=== PATIENT | male | born 1985 | race Caucasian/White ===

== ENCOUNTER 2024-10-01 05:15 | Inpatient (IN) | payer OTHER ==
[~2024-10-01] VITALS: Ht 165.1 cm; Wt 61.3 kg
--- NOTE | 2024-10-01 06:33 | ED.PDOC ---
General HPI Comments 39 year old male presents to the ED with chief complaint of flank pain. Patient reports that he has been experiencing intermittent left sided flank pain for the past 7 months, however, it got worse last night along with experiencing associated dysuria. 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 Patient states he has had recent unexplained weight loss of about 15 lbs and a poor appetite. Patient admits to occasional ETOH and Cocaine use. Patient denies any falls, injury, N/V/D, abdominal pain, headache, dizziness, hematuria, or fever. Chief Complaint: Flank Pain Time Seen by MD: 06:24 Reviewed notes: Nurses Notes, Medications, Allergies Information Source: Patient Mode of Arrival: Ambulatory Severity: Moderate Timing: Months Duration: Intermittent Prehospital treatment: None Onset: Spontaneous Symptoms: Dysuria History of: None Location: (L)Flank Penile discharge: None Modifying factors: None associated signs and symptoms: Flank Pain, Dysuria Past Medical History PAST MEDICAL HISTORY: Denies Surgical History: Denies all surgeries Family History Family History: Reviewed,noncontributory to illness Social History Smoker: Cigarettes Alcohol: Occasionally Drugs: Cocaine Lives In: Home Constitutional: denies: chills, diaphoresis, fatigue, fever, malaise, sweats, weakness, others EENTM: denies: blurred vision, double vision, ear bleeding, ear discharge, ear drainage, ear pain, ear ringing, eye pain, eye redness, hearing loss, mouth pain, mouth swelling, nasal discharge, nose bleeding, nose congestion, nose pain, photophobia, tearing, throat pain, throat swelling, voice changes, others Respiratory: denies: cough, hemoptysis, orthopnea, SOB at rest, shortness of breath, SOB with excertion, stridor, wheezing, others Cardiovascular: denies: chest pain, dizzy spells, diaphoresis, Dyspnea on exertion, edema, irregular heart beat, left arm pain, lightheadedness, palpitations, PND, syncope, others Gastrointestinal: reports: poor appetite; denies: abdomen distended, abdominal pain, blood streaked bowels, constipated, diarrhea, dysphagia, difficulty swallowing, hematemesis, melena, nausea, poor fluid intake, rectal bleeding, rectal pain, vomiting, others Genitourinary: reports: dysuria, flank pain; denies: burning, frequency, hematuria, incontinence, penile discharge, penile sore, pain, testicle pain, testicle swelling, urgency, others Neurological: denies: dizziness, fainting, headache, left sided numbness, left sided weakness, numbness, paresthesia, pre-existing deficit, right sided num bness, right sided weakness, seizure, speech problems, tingling, tremors, weakness, others Musculoskeletal: denies: back pain, gout, joint pain, joint swelling, muscle pain, muscle stiffness, neck pain, others Integumetry: denies: bruises, change in color, change in hair/nails, dryness, laceration, lesions, lumps, rash, wounds, others Allergic/Immunocompromised: denies: Difficulty Healing, Frequent Infections, Hives, Itching, others Hematologic/Lymphatic: denies: anemia, blood clots, easy bleeding, easy bruising, swollen glands, others Endocrine: reports: unexplained weight loss; denies: excessive hunger, excessive sweating, excessive thirst, excessive urination, flushing, intolerance to cold, intolerance to heat, unexplained weight gain, others Psychiatric: denies: anxiety, bipolar disorder, depression, hopeless, panic disorder, schizophrenia, sleepless, suicidal, others All Other Systems: Reviewed and Negative Physical Exam General Appearance: Moderate Distress, Normal HEENT: Normal ENT Inspection, PERRL/EOMI Neck: Full Range of Motion, Non-Tender, Normal, Normal Inspection Respiratory: Chest Non-Tender, Lungs Clear, No Accessory Muscle Use, No Respiratory Distress, Normal Breath Sounds Cardiovascular: No Edema, No JVD, No Murmur, No Gallop, Normal Peripheral Pulses, Regular Rate/Rhythm Breast Exam: Deferred Gastrointestinal: No Organomegaly, Non Tender, No Pulsatile Mass, Normal Bowel Sounds, Soft Genitalia: Deferred Pelvic: Deferred Rectal: Deferred Extremities: No calf tenderness, Normal capillary refill, Normal inspection, Normal range of motion, Non-tender, No pedal edema Musculoskeletal : Apperance: Normal Neurologic: Alert, track worker II-XII nml as Tested, No Motor Deficits, Normal Affect, Normal Mood, No Sensory Deficits Cerebellar Function: Normal Reflexes: Normal Skin: Dry, Normal Color, Warm Peripheral Pulses: 3+ Radial (R), 3+ Radial (L) Lymphatic: No Adenopathy Was a procedure done? Was a procedure done?: No Differential Diagnosis Kidney stone (Female): Musculoskeletal pain, Urinary obstruction, Urolithiasis Kidney stone (Male): Pyelonephritis, Urolithiasis, Urinary tract infection X-Ray, Labs, Meds, VS Vital Signs Date Time Temp Pulse Resp B/P (MAP) Pulse Ox O2 Delivery O2 Flow Rate FiO2 10/01/24 08:51 100 18 135/89 10/01/24 08:44 97.9 100 16 135/89 (104) 95 97.9 10/01/24 08:44 100 18 95 Room Air* 0 21 10/01/24 05:55 98.4 95 16 132/106 (115) 96 Lab Test 10/01/24 06:41 10/01/24 05:50 Range/Units White Blood Count 5.7 4.4-10.8 10^3/uL Red Blood Count 5.51 4.5-5.90 10^6/uL Hemoglobin 16.7 13.5-17.5 g/dL Hematocrit 49.0 41.0-53.0 % Mean Corpuscular Volume 89.0 80.0-100.0 fL Mean Corpuscular Hemoglobin 30.4 28.0-32.0 pg Mean Corpuscular Hemoglobin Concent 34.2 32.0-36.0 g/dL Red Cell Distribution Width 15.9 H 11.8-14.3 % Platelet Count 239 140-450 10^3/uL Mean Platelet Volume 8.1 6.9-10.8 fL Neutrophils (%) (Auto) 55.0 37.0-80.0 % Lymphocytes (%) (Auto) 29.3 10.0-50.0 % Monocytes (%) (Auto) 6.4 0.0-12.0 % Eosinophils (%) (Auto) 8.8 H 0.0-7.0 % Basophils (%) (Auto) 0.5 0.0-2.0 % Neutrophils # (Auto) 3.1 1.6-8.6 10 ^3/uL Lymphocytes # (Auto) 1.7 0.4-5.4 10 ^3/uL Monocytes # (Auto) 0.4 0-1.3 10 ^3/uL Eosinophils # (Auto) 0.5 0-0.8 10 ^3/uL Basophils # (Auto) 0 0-0.2 10 ^3/uL Nucleated Red Blood Cells 0.3 % Sodium Level 136 136-145 mmol/L Potassium Level 3.9 3.5-5.1 mmol/L Chloride Level 100 98-107 mmol/L Carbon Dioxide Level 29 20-31 mmol/L Anion Gap 7 5-15 Blood Urea Nitrogen 10 9-23 mg/dL Creatinine 1.09 0.700-1.30 mg/dL Glomerular Filtration Rate Calc 87 >90 mL/min BUN/Creatinine Ratio 9.2 L 10.0-20.0 Serum Glucose 76 74-106 mg/dL Calcium Level 9.7 8.7-10.4 mg/dL Lipase 34 12-53 U/L Urine Color Yellow Yellow Urine Clarity Clear Clear Urine pH 6.0 5.0-9.0 Urine Specific [place] 1.029 1.001-1.035 Urine Protein Trace H Negative Urine Ketones 1+ H Negative Urine Blood Negative Negative /uL Urine Nitrite Negative Negative Urine Bilirubin Negative Negative Urine Urobilinogen Normal Negative mg/dL Urine Leukocyte Esterase Negative Negative /uL Urine RBC 2 0 - 3 /hpf Urine Microscopic WBC 1 0-3 /HPF Urine Squamous Epithelial Cells None seen <5 /hpf Urine Bacteria None seen None Seen /hpf Urine Mucus Few None Seen Urine Glucose Normal Normal mg/dL Urine Opiates Screen Neg NEGATIVE Urine Fentanyl Screen Neg NEGATIVE Urine Barbiturates Screen Neg NEGATIVE Urine Phencyclidine Screen Neg NEGATIVE Urine Amphetamines Screen Neg NEGATIVE Urine Benzodiazepines Screen Neg NEGATIVE Urine Cocaine Screen Pos NEGATIVE Urine Cannabinoids Screen Neg NEGATIVE Current Medications Medications (Trade) Dose Ordered Sig/[facility] Route Start Time Stop Time Status Last Admin Sodium Chloride 1,000 ml @ 1,000 mls/hr Q1H ONCE IVB 10/01/24 06:45 10/01/24 07:44 DC 10/01/24 08:43 Patient alert. Complaining of flank pain. Vitals stable. Answering all questions. Abdomen is soft nontender. States that he has been losing weight. Establish intravenous access. Was given fluids. Was given morphine. Was given Zofran. Counseled patient on effects of smoking cigarettes for 15 minutes. Reviewed his history. Explained to the patient. CT Abd/Pel: FINDINGS: Motion artifact beam hardening artifact limit evaluation. Lung bases: Lung bases are clear. Liver: Grossly unremarkable in its noncontrast enhanced appearance. No abnormal density or focal lesion identified. Biliary: Gallbladder is partially contracted. No calcified gallstones visualized. Spleen: Unremarkable. Pancreas: Grossly unremarkable in its noncontrast enhanced appearance. Adrenal glands: Unremarkable. No mass. Kidneys: No hydronephrosis. Bilateral renal cysts, left greater than right, with the largest measuring up to 5.3 cm.. Multiple small left renal calculi measuring up to 8 mm in greatest dimension. No obstructing calculi. Aorta/Vascular: Mild atherosclerotic calcification. No abdominal aortic aneurysm. Retroperitoneum: No mass or lymphadenopathy. Bowel/mesentery: Nonspecific nondilated fluid-filled small bowel loops. No small bowel obstruction. Appendix is visualized and appears unremarkable. Pelvic organs: Grossly unremarkable. Bladder: Mild circumferential thickening of the bladder wall. Abdominal wall: No mass or hernia. Bones: No acute fracture or suspicious intraosseous lesion. IMPRESSION: 1. Multiple small nonobstructing left renal calculi. No hydronephrosis or obstructing calculi. 2. Bilateral renal cysts, greater on the left, with the largest measuring up to 5.3 cm on the left. 3. Nonspecific nondilated fluid-filled small bowel loops, may be seen with ileus or enteritis in the appropriate clinical setting. No small bowel obstruction. 4. Circumferential thickening of the bladder wall is nonspecific. Correlate clinically to exclude cystitis. 5. Additional findings as described above Images Reviewed?: Images reviewed and evaluated by me Time of 1ST Reevaluation: 07:24 Reevaluation 1ST: Unchanged Patient Education/Counseling: Diagnosis, Treatment Family Education/Counseling: No Family Present Additional Information I reviewed the following notes from patient's past medical encounters: None The following tests were ordered, and results were reviewed by me: CT Abd/Pel, CBC, BMP, Lipase, UA Additional Information was gathered from interviewing the following independent historians: None I reviewed and agreed with the following test results read by other providers: CT Abd/Pel I discussed treatment and results with medical personnel. Departure 1 Departure Time of Disposition: 06:38 Impression: Primary Impression: Acute abdominal pain Disposition: ADMITTED INPATIENT Admit to: Med Surg Condition: Guarded Critical Care Note Critical Care Time?: No Stability Stability form required: No Heart Score Heart Score: Heart Score Response (Comments) Value History N/A 0 EKG N/A 0 Age N/A 0 Risk Factors N/A 0 Troponin N/A 0 Total 0 I personally scribed for MONIKA SHARMA MD ([email or web address]) on 10/01/24 at 06:33. Electronically submitted by Deandre Jeong ([email or web address]). I personally scribed for MONIKA SHARMA MD ([email or web address]) on 10/01/24 at 06:34. Electronically submitted by Deandre Jeong ([email or web address]). I personally scribed for MONIKA SHARMA MD ([email or web address]) on 10/01/24 at 07:13. Electronically submitted by Deandre Jeong ([email or web address]). I personally scribed for MONIKA SHARMA MD ([email or web address]) on 10/01/24 at 10:36. Electronically submitted by Deandre Jeong ([email or web address]). MONIKA SHARMA MD Oct 01, 2024 06:33
[2024-10-01 07:29] LABS: Basophils # (auto) 0 10 ^3/uL (0-0.2); Basophils % (auto) 0.5 % (0.0-2.0); Eosinophils # (auto) 0.5 10 ^3/uL (0-0.8); Eosinophils % (auto) 8.8 % (0.0-7.0); Hemoglobin 16.7 g/dL (13.5-17.5); Lymphocytes # (auto) 1.7 10 ^3/uL (0.4-5.4); Lymphocytes % (auto) 29.3 % (10.0-50.0); Mean Corpuscular Hemoglobin 30.4 pg (28.0-32.0); Mean Corpuscular Hgb Conc. 34.2 g/dL (32.0-36.0); Monocytes # (auto) 0.4 10 ^3/uL (0-1.3); Monocytes % (auto) 6.4 % (0.0-12.0); Neutrophils # (auto) 3.1 10 ^3/uL (1.6-8.6); Nucleated Red Blood Cells % 0.3 %; Platelet Count (auto) 239 10^3/uL (140-450); Red Blood Cells 5.51 10^6/uL (4.5-5.90); Red Cell Distribution Width 15.9 % (11.8-14.3); White Blood Cell 5.7 10^3/uL (4.4-10.8)
[2024-10-01 07:33] LABS: Chloride 100 mmol/L (98-107); Potassium 3.9 mmol/L (3.5-5.1); Sodium 136 mmol/L (136-145)
[2024-10-01 07:34] LABS: Anion Gap 7 (5-15); Carbon Dioxide 29 mmol/L (20-31)
[2024-10-01 07:35] LABS: Calcium 9.7 mg/dL (8.7-10.4)
[2024-10-01 07:40] LABS: BUN/Creatinine Ratio 9.2 (10.0-20.0); Blood Urea Nitrogen 10 mg/dL (9-23); Glucose 76 mg/dL (74-106); Lipase 34 U/L (12-53)
[2024-10-01] MEDS: SODIUM CHLORIDE 0.9% 1,000 ML IVB ONE (08:43)
[2024-10-01 08:44] VITALS: PULSE 100; RESP 18; O2SAT 95
[2024-10-01] MEDS: MORPHINE SULFATE 4 MG/ML SYR/VIAL IV ONE (08:51)
[2024-10-01] MEDS: ONDANSETRON HCL 4 MG/2 ML VIAL IV ONE (08:54)
[2024-10-01 09:43] LABS: Urine Bacteria None Seen /hpf (None Seen)
[2024-10-01 09:56] LABS: Urine Blood Negative /uL (Negative); Urine Clarity Clear (Clear); Urine Color Yellow (Yellow); Urine Mucus FEW (None Seen); Urine Protein, UAD TRACE (Negative); Urine Specific Gravity 1.029 (1.001-1.035); Urine Squamous Epithelial Cell None Seen /hpf (<5); Urine Urobilinogen Normal (Negative); Urine WBC 1 /HPF (0-3)
--- NOTE | 2024-10-01 10:14 | DVH ---
CLINICAL INFORMATION: 39 years old, Male; flank pain. TECHNIQUE: Axial CT images of the abdomen and pelvis were obtained without IV contrast. Coronal and sagittal reformatted images were obtained, reviewed, and stored. Evaluation of the parenchymal organs is limited without IV contrast. Evaluation of the bowel and mesentery is limited without oral contra st. All CT scans at this medical facility are performed using dose modulation techniques as appropria te to a performed exam including the following: Automated exposure control was utilized; adjustment o f the MA and/or KV according to patient size; and use of iterative reconstruction technique. CTDIvol = 5.55 mGy DLP = 268.73 mGy-cm COMPARISON: None FINDINGS: Motion artifact beam hardening artifact limit evaluation. Lung bases: Lung bases are clear. Liver: Grossly unremarkable in its noncontrast enhanced appearance. No abnormal density or focal les ion identified. Biliary: Gallbladder is partially contracted. No calcified gallstones visualized. Spleen: Unremarkable. Pancreas: Grossly unremarkable in its noncontrast enhanced appearance. Adrenal glands: Unremarkable. No mass. Kidneys: No hydronephrosis. Bilateral renal cysts, left greater than right, with the largest measurin g up to 5.3 cm.. Multiple small left renal calculi measuring up to 8 mm in greatest dimension. No obs tructing calculi. Aorta/Vascular: Mild atherosclerotic calcification. No abdominal aortic aneurysm. Retroperitoneum: No mass or lymphadenopathy. Bowel/mesentery: Nonspecific nondilated fluid-filled small bowel loops. No small bowel obstruction. A ppendix is visualized and appears unremarkable. Pelvic organs: Grossly unremarkable. Bladder: Mild circumferential thickening of the bladder wall. Abdominal wall: No mass or hernia. Bones: No acute fracture or suspicious intraosseous lesion. IMPRESSION: 1. Multiple small nonobstructing left renal calculi. No hydronephrosis or obstructing calculi. 2. Bilateral renal cysts, greater on the left, with the largest measuring up to 5.3 cm on the left. 3. Nonspecific nondilated fluid-filled small bowel loops, may be seen with ileus or enteritis in the appropriate clinical setting. No small bowel obstruction. 4. Circumferential thickening of the bladder wall is nonspecific. Correlate clinically to exclude cy stitis. 5. Additional findings as described above
[2024-10-01 10:16] LABS: Amphetamine Screen, Urine Neg (NEGATIVE); Barbiturate Scree,Urine Neg (NEGATIVE); Benzodiazephine Screen, Urine Neg (NEGATIVE); Cannabinoid Screen, Urine Neg (NEGATIVE); Cocaine Screen, Urine Pos (NEGATIVE); Opiate Scree,Urine Neg (NEGATIVE); Phencyclidine Screen, Urine Neg (NEGATIVE)
[2024-10-01] MEDS ORDERED: MORPHINE SULFATE INJ 2 MG/ml SYRG IV PRN (10:45)
[2024-10-01] MEDS ORDERED: NITROGLYCERIN 0.4 MG SL TAB SL PRN (10:45)
[2024-10-01] MEDS ORDERED: ONDANSETRON HCL 4 MG/2 ML VIAL IV PRN (10:45)
[2024-10-01] MEDS ORDERED: ACETAMINOPHEN 325 MG TAB PO PRN (10:45)
--- NOTE | 2024-10-01 10:47 | DVHHP2 ---
History of Present Illness Reason for Visit: Chest pain and left flank pain History of Present Illness Jimmy Oconnell is a 39-year-old male with no past medical history who presents to the ED with midsternal chest pain, left flank pain, and dysuria x1 day. Patient reports that the left flank pain is 2/10 intermittent and throbbing. He also reports that the midsternal chest pain is 1/10 throbbing and intermittent better when lying down. Patient also reports of upper quadrant pain, worse when coughing. He reports that he lost 50 lb over the last several months and has had a poor appetite. Patient states that there are no triggering factors. Patient denies any shortness of breath, fever, chills, recent sick contacts, hematuria, nausea, vomiting, and diarrhea. 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 Past Surgical History: None Family History: Hypertension, Other (Dad with hypertension and mom with dementia) Smoke: <1 pack per day (Vapes) ALCOHOL: heavy Drugs: Cocaine Lives: with Family Domestic Violence: Neg Review of Systems Constitutional: No: Fever, Chills, Sweats, Weakness, Malaise, Other Eyes: No: Pain, Vision change, Conjunctivae inflammation, Eyelid inflammation, Other, Redness ENT: No: Ear pain, Ear discharge, Nose pain, Nose discharge, Nose congestion, Mouth pain, Mouth swelling, Throat pain, Throat swelling, Other Respiratory: No: Cough, Dry, Shortness of breath, SOB with excertion, Wheezing, Hemoptysis, Pleuritic Pain, Sputum, Wheezing, Other Cardiovascular: Chest Pain; No: Palpitations, Orthopnea, Paroxysmal Noc. Dyspnea, Edema, Lt Headedness, Other Gastrointestinal: Abdominal Pain; No: Nausea, Vomiting, Diarrhea, Constipation, Melena, Hematochezia, Other Genitourinary: Dysuria; No Frequency, No Incontinence, No Hematuria, No Retention, No Other Musculoskeletal: No: other, neck pain, shoulder pain, arm pain, back pain, hand pain, leg pain, foot pain Skin: No: Rash, Lesions, Jaundice, Bruising, Other Neurological: No: Weakness, Numbness, Incoordination, Change in speech, Confusion, Seizures, Other Other Left flank pain Allergies: Coded Allergies: NO KNOWN ALLERGIES (Unverified , 10/01/24) Exam Vital Signs Vital Signs Date Time Temp Pulse Resp B/P (MAP) Pulse Ox O2 Delivery O2 Flow Rate FiO2 10/01/24 08:51 100 18 135/89 10/01/24 08:44 97.9 95 97.9 10/01/24 08:44 Room Air* 0 21 General Appearance: Alert, Oriented X3, Cooperative, No acute distress HEENT: Atraumatic, PERRLA, EOMI, Mucous membr. moist/pink Respiratory: Clear to auscultation, Normal air movement Cardiovascular: Regular rate, Normal S1, Normal S2, No murmurs Abdominal: Normal bowel sounds, Soft, No tenderness, No hepatospenomegaly, No masses Extremities: No clubbing, No cyanosis, No edema, Normal pulses, No tenderness/swelling Skin: No rashes, No breakdown, No significant lesion Neuro: Normal gait, Normal speech, Strength at 5/5 X4 ext, Normal tone, S ensation intact Psych/Mental Status: Mental status NL, Mood NL Labs/Xrays Labs Test 10/01/24 06:41 10/01/24 05:50 Range/Units White Blood Count 5.7 4.4-10.8 10^3/uL Red Blood Count 5.51 4.5-5.90 10^6/uL Hemoglobin 16.7 13.5-17.5 g/dL Hematocrit 49.0 41.0-53.0 % Mean Corpuscular Volume 89.0 80.0-100.0 fL Mean Corpuscular Hemoglobin 30.4 28.0-32.0 pg Mean Corpuscular Hemoglobin Concent 34.2 32.0-36.0 g/dL Red Cell Distribution Width 15.9 H 11.8-14.3 % Platelet Count 239 140-450 10^3/uL Mean Platelet Volume 8.1 6.9-10.8 fL Neutrophils (%) (Auto) 55.0 37.0-80.0 % Lymphocytes (%) (Auto) 29.3 10.0-50.0 % Monocytes (%) (Auto) 6.4 0.0-12.0 % Eosinophils (%) (Auto) 8.8 H 0.0-7.0 % Basophils (%) (Auto) 0.5 0.0-2.0 % Neutrophils # (Auto) 3.1 1.6-8.6 10 ^3/uL Lymphocytes # (Auto) 1.7 0.4-5.4 10 ^3/uL Monocytes # (Auto) 0.4 0-1.3 10 ^3/uL Eosinophils # (Auto) 0.5 0-0.8 10 ^3/uL Basophils # (Auto) 0 0-0.2 10 ^3/uL Nucleated Red Blood Cells 0.3 % Sodium Level 136 136-145 mmol/L Potassium Level 3.9 3.5-5.1 mmol/L Chloride Level 100 98-107 mmol/L Carbon Dioxide Level 29 20-31 mmol/L Anion Gap 7 5-15 Blood Urea Nitrogen 10 9-23 mg/dL Creatinine 1.09 0.700-1.30 mg/dL Glomerular Filtration Rate Calc 87 >90 mL/min BUN/Creatinine Ratio 9.2 L 10.0-20.0 Serum Glucose 76 74-106 mg/dL Calcium Level 9.7 8.7-10.4 mg/dL Lipase 34 12-53 U/L Urine Color Yellow Yellow Urine Clarity Clear Clear Urine pH 6.0 5.0-9.0 Urine Specific [place] 1.029 1.001-1.035 Urine Protein Trace H Negative Urine Ketones 1+ H Negative Urine Blood Negative Negative /uL Urine Nitrite Negative Negative Urine Bilirubin Negative Negative Urine Urobilinogen Normal Negative mg/dL Urine Leukocyte Esterase Negative Negative /uL Urine RBC 2 0 - 3 /hpf Urine Microscopic WBC 1 0-3 /HPF Urine Squamous Epithelial Cells None seen <5 /hpf Urine Bacteria None seen None Seen /hpf Urine Mucus Few None Seen Urine Glucose Normal Normal mg/dL Urine Opiates Screen Neg NEGATIVE Urine Fentanyl Screen Neg NEGATIVE Urine Barbiturates Screen Neg NEGATIVE Urine Phencyclidine Screen Neg NEGATIVE Urine Amphetamines Screen Neg NEGATIVE Urine Benzodiazepines Screen Neg NEGATIVE Urine Cocaine Screen Pos NEGATIVE Urine Cannabinoids Screen Neg NEGATIVE CLINICAL INFORMATION: 39 years old, Male; flank pain. TECHNIQUE: Axial CT images of the abdomen and pelvis were obtained without IV contrast. Coronal and sagittal reformatted images were obtained, reviewed, and stored. Evaluation of the parenchymal organs is limited without IV contrast. Evaluation of the bowel and mesentery is limited without oral contrast. All CT scans at this medical facility are performed using dose modulation techniques as appropriate to a performed exam including the following: Automated exposure control was utilized; adjustment of the MA and/or KV according to patient size; and use of iterative reconstruction technique. CTDIvol = 5.55 mGy DLP = 268.73 mGy-cm COMPARISON: None FINDINGS: Motion artifact beam hardening artifact limit evaluation. Lung bases: Lung bases are clear. Liver: Grossly unremarkable in its noncontrast enhanced appearance. No abnormal density or focal lesion identified. Biliary: Gallbladder is partially contracted. No calcified gallstones visualized. Spleen: Unremarkable. Pancreas: Grossly unremarkable in its noncontrast enhanced appearance. Adrenal glands: Unremarkable. No mass. Kidneys: No hydronephrosis. Bilateral renal cysts, left greater than right, with the largest measuring up to 5.3 cm.. Multiple small left renal calculi measuring up to 8 mm in greatest dimension. No obstructing calculi. Aorta/Vascular: Mild atherosclerotic calcification. No abdominal aortic aneurysm. Retroperitoneum: No mass or lymphadenopathy. Bowel/mesentery: Nonspecific nondilated fluid-filled small bowel loops. No small bowel obstruction. Appendix is visualized and appears unremarkable. Pelvic organs: Grossly unremarkable. Bladder: Mild circumferential thickening of the bladder wall. Abdominal wall: No mass or hernia. Bones: No acute fracture or suspicious intraosseous lesion. IMPRESSION: 1. Multiple small nonobstructing left renal calculi. No hydronephrosis or obstructing calculi. 2. Bilateral renal cysts, greater on the left, with the largest measuring up to 5.3 cm on the left. 3. Nonspecific nondilated fluid-filled small bowel loops, may be seen with ileus or enteritis in the appropriate clinical setting. No small bowel obstruction. 4. Circumferential thickening of the bladder wall is nonspecific. Correlate clinically to exclude cystitis. 5. Additional findings as described above Assessment/Plan Assessment/Plan Assessment/Plan: Chest pain for rule out coronary ischemia likely drug-induced Intractable flank and abdominal pain likely due to enteritis Labs NS given ED Pain management Antiemetics Lipase UA CT abdomen and pelvis Drug screen Troponins EKG Chest x-ray BNP ACS protocol THO A.m. 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 Procedure Category Date Status Time Ct Ab Pel Wo Con-No CT 10/01/24 Resulted Oral Or Iv 09:38 Troponin-I Hs LAB 10/01/24 Logged 10:32 Troponin-I Hs LAB 10/01/24 Logged 11:32 Troponin-I Hs LAB 10/01/24 Logged 13:32 Electrocardigram EKG 10/01/24 Logged 10:32 Electrocardigram EKG 10/01/24 Logged 11:32 Electrocardigram EKG 10/01/24 Logged 13:32 Albuterol Medneb PHA 10/01/24 Transmitted (Ventolin Medneb) 14:00 Albuterol Medneb PHA 10/01/24 Transmitted (Ventolin Medneb) 10:45 Ipratropium Medneb PHA 10/01/24 Transmitted (Atrovent Medneb) 14:00 Ipratropium Medneb PHA 10/01/24 Transmitted (Atrovent Medneb) 10:45 Chest Xray 1 View XY 10/01/24 Verified 10:33 Admit ADMIT 10/01/24 Transmitted 10:33 Code Status CODE 10/01/24 Transmitted 10:33 Vital Signs ZACHARY 10/01/24 Transmitted 10:33 Senior Ui Ux Developer ZACHARY 10/01/24 Transmitted 10:33 Cardiac DIET 10/01/24 Transmitted Diet-2gna,Lofat,Lochol Lunch Aspirin Tablet PHA 10/02/24 Transmitted 10:00 Lipitor 40mg Hs PHA 10/01/24 Transmitted Hi-Intensity 22:00 Acetaminophen Tablet PHA 10/01/24 Transmitted (Tylenol Tablet) 10:45 Complete Blood Count LAB 10/02/24 Verified 04:00 Basic Metabolic Panel LAB 10/02/24 Verified 04:00 Education - Smoking ZACHARY 10/01/24 Verified Cessation 10:33 Ondansetron Hcl PHA 10/01/24 Verified (Zofran) 10:45 Electrocardigram EKG 10/02/24 Verified 04:00 Alum & Mag PHA 10/01/24 Verified Hydrox-Simethicone 10:45 Troponin-I Hs LAB 10/01/24 Verified 10:33 Cardiac ZACHARY 10/01/24 Verified Rehabilitation - Outpa Nitroglycerin PHA 10/01/24 Verified Sublingual (Ntrostat 10:45 Morphine Sulfate PHA 10/01/24 Verified Injection 10:45 Stat Ekg For Chest ZACHARY 10/01/24 Verified Pain 10:33 Notify Md Of Changes [facility] 10/01/24 Verified From Base 10:33 Business Rules Analyst For [facility] 10/01/24 Verified 24 Hours 10:33 Emergency Dysrhythmia [facility] 10/01/24 Verified Protocol 10:33 Rhythm Strips Once [facility] 10/01/24 Verified Every Shift 10:33 Oxygen By Nasal RT 10/01/24 Verified Cannula 10:33 B-Type Natriuretic LAB 10/01/24 Verified Peptide 10:33 Date of Service: Oct 01, 2024 Billing Provider: STERLING BROWNP Common Visit Codes: [id number] INP/OBS CARE (HIGH) STERLING BROWN VENEER JOINTER RETURNER Oct 01, 2024 10:47
--- NOTE | 2024-10-01 11:14 | DVH ---
CHEST RADIOGRAPH Indication: chest pain Technique: Single frontal view of the chest was obtained Comparison: None FINDINGS: Lines and Tubes: None Lungs: No focal consolidation. Pleura: No effusion. No pneumothorax. Cardiomediastinal contours: Unremarkable Bones: No acute osseous abnormality. IMPRESSION: 1. No acute cardiopulmonary disease.
[2024-10-01] MEDS: cefTRIAXone 1GM/50ML D5W 50 ML IV ONE (12:11)
[2024-10-01] MEDS: MAALOX PLUS or MAALOX 30 ML PO ONE (12:11)
[2024-10-01] MEDS: ALBUTEROL SULF 2.5 MG/0.5ML(0.5%) NEB SOLN NEB SCH (14:00)
[2024-10-01] MEDS: IPRATROPIUM BROM 0.5 MG/2.5ML INH SOL NEB SCH (14:00)
--- NOTE | 2024-10-01 15:13 | ECG ---
[facility] Test Date: 2024-10-01 Test Time: 12:05:28 Pat Name: JEANNIE PINEDA Department: ER Room: 0270T Gender: M Support Specialist: KELI : 1985 Requested By: STERLING BROWN Order Number: [id number] Reading MD: Darien Molina Measurements Intervals [place] Rate: 76 P: 67 AR: 170 QRS: 46 QRSD: 83 T: 38 QT: 362 QTc: 408 Interpretive Statements Sinus rhythm Electronically Signed On 10-03-2024 16:39:12 PST by Darien Molina Please click the below link to view image of tracing.
[2024-10-01] MEDS: IPRATROPIUM BROM 0.5 MG/2.5ML INH SOL NEB PRN (16:21)
[2024-10-01] MEDS: ALBUTEROL SULF 2.5 MG/0.5ML(0.5%) NEB SOLN NEB PRN (16:22)
[2024-10-01 16:41] VITALS: BP 123/77; PULSE 79; RESP 18; TEMP 98.3; O2SAT 94
[2024-10-01 18:58] VITALS: PULSE 77; RESP 18; O2SAT 100
[2024-10-01 19:50] VITALS: PULSE 76; RESP 18; O2SAT 94
[2024-10-01 21:53] VITALS: BP 126/67; PULSE 83; RESP 20; TEMP 98.2; O2SAT 96
[2024-10-01] MEDS: ATORVASTATIN 20 MG TAB PO SCH (22:27)
[2024-10-02] VITALS (9 sets, daily range): BP systolic 108–127; BP diastolic 68–76; PULSE 51–83; RESP 18–21; TEMP 97.5–98; O2SAT 95–99
[2024-10-02 08:28] LABS: Anion Gap 4 (5-15); Basophils # (auto) 0 10 ^3/uL (0-0.2); Basophils % (auto) 0.6 % (0.0-2.0); Calcium 9.3 mg/dL (8.7-10.4); Chloride 104 mmol/L (98-107); Eosinophils # (auto) 0.7 10 ^3/uL (0-0.8); Eosinophils % (auto) 9.6 % (0.0-7.0); Hematocrit 47.3 % (41.0-53.0); Hemoglobin 15.9 g/dL (13.5-17.5); Lymphocytes # (auto) 2.4 10 ^3/uL (0.4-5.4); Lymphocytes % (auto) 33.6 % (10.0-50.0); Mean Corpuscular Hemoglobin 30.6 pg (28.0-32.0); Mean Corpuscular Hgb Conc. 33.7 g/dL (32.0-36.0); Mean Corpuscular Volume 90.6 fL (80.0-100.0); Monocytes # (auto) 0.4 10 ^3/uL (0-1.3); Monocytes % (auto) 5.6 % (0.0-12.0); Neutrophils # (auto) 3.6 10 ^3/uL (1.6-8.6); Neutrophils % (auto) 50.6 % (37.0-80.0); Nucleated Red Blood Cells % 0.1 %; Platelet Count (auto) 195 10^3/uL (140-450); Potassium 4.2 mmol/L (3.5-5.1); Red Blood Cells 5.22 10^6/uL (4.5-5.90); Red Cell Distribution Width 16.3 % (11.8-14.3); Sodium 140 mmol/L (136-145)
[2024-10-02 08:34] LABS: BUN/Creatinine Ratio 10.1 (10.0-20.0); Blood Urea Nitrogen 12 mg/dL (9-23); Glucose 91 mg/dL (74-106)
[2024-10-02 08:35] LABS: Carbon Dioxide 32 mmol/L (20-31)
[2024-10-02] MEDS: PANTOPRAZOLE 40 MG/10 ML VIAL INJ IV SCH (09:52)
[2024-10-02] MEDS: cefTRIAXone 1GM/50ML D5W 50 ML IV SCH (09:53)
[2024-10-02] MEDS: ASPirin 81 mg TAB PO SCH (09:54)
--- NOTE | 2024-10-02 14:41 | DVHPN2 ---
Reviewed: Care Plan, H&P, Labs, Medications, Previous Orders, Radiology Changes from previous H/P or p: No Changes General: Per HPI Eyes: No Pain, No Vision change, No Conjunctivae inflammation, No Eyelid inflammation, No Other, No Redness ENT: No Ear pain, No Ear discharge, No Nose pain, No Nose discharge, No Nose congestion, No Mouth pain, No Mouth swelling, No Throat pain, No Throat swelling, No Other Cardiovascular: Chest Pain; No Palpitations, No Orthopnea, No Paroxysmal Noc. Dyspnea, No Edema, No Lt Headedness, No Other Respiratory: No Cough, No Dry, No Shortness of breath, No SOB with excertion, No Wheezing, No Hemoptysis, No Pleuritic Pain, No Sputum, No Other Gastrointestinal: No Nausea, No Vomiting; Abdominal Pain; No Diarrhea, No Constipation, No Melena, No Hematochezia, No Other Genitourinary: Dysuria; No Frequency, No Incontinence, No Hematuria, No Retention, No Other Musculoskeletal: No other, No neck pain, No shoulder pain, No arm pain, No back pain, No hand pain, No leg pain, No foot pain Skin: No Rash, No Lesions, No Jaundice, No Bruising, No Other Objective Vitals Vital Signs Date Time Temp Pulse Resp B/P (MAP) Pulse Ox O2 Delivery O2 Flow Rate FiO2 10/02/24 11:22 97 Room Air 0.0 10/02/24 11:22 21 10/02/24 11:22 68 20 10/02/24 05:00 98.0 127/76 (93) 98.0 Intake/Output Intake and Output 10/02/24 07:00 Intake Total 150 ml Balance 150 ml Intake Oral 150 ml # Voids 1 Medications Current Medications Medications Dose Ordered Sig/Marina Route Start Time Stop Time Status Last Admin Dose Admin Albuterol 2.5 mg Q4HWA NEB 10/01/24 14:00 10/02/24 11:22 2.5 MG Albuterol 2.5 mg Q2HPRN PRN NEB 10/01/24 10:45 10/01/24 16:22 2.5 MG Ipratropium [place] 0.5 mg Q4HWA NEB 10/01/24 14:00 10/02/24 11:22 0.5 MG Ipratropium [place] 0.5 mg Q2HPRN PRN NEB 10/01/24 10:45 10/01/24 16:21 0.5 MG Aspirin 81 mg DAILY PO 10/02/24 10:00 10/02/24 09:54 81 MG Atorvastatin Calcium 40 mg HS PO 10/01/24 22:00 10/01/24 22:27 40 MG Acetaminophen 650 mg Q6HP PRN PO 10/01/24 10:45 Ondansetron HCl 4 mg Q4HP PRN IV 10/01/24 10:45 Nitroglycerin 0.4 mg Q5MINP PRN SL 10/01/24 10:45 Morphine Sulfate 2 mg Q30M PRN IV 10/01/24 10:45 Ceftriaxone Sodium 50 ml @ 100 mls/hr DAILY@09 IV 10/02/24 09:00 10/02/24 09:53 100 MLS/HR Pantoprazole Sodium 40 mg DAILY IV 10/02/24 10:00 10/02/24 09:52 40 MG Laboratory Results Laboratory Tests 10/02/24 07:17 Chemistry Test 10/02/24 07:17 Calcium Level 9.3 mg/dL (8.7-10.4) Urinalysis Test 10/01/24 05:50 Urine Color Yellow (Yellow) Urine Clarity Clear (Clear) Urine pH 6.0 (5.0-9.0) Urine Specific [place] 1.029 (1.001-1.035) Urine Protein Trace (Negative) H Urine Ketones 1+ (Negative) H Urine Blood Negative /uL (Negative) Urine Nitrite Negative (Negative) Urine Bilirubin Negative (Negative) Urine Urobilinogen Normal mg/dL (Negative) Urine Leukocyte Esterase Negative /uL (Negative) Urine RBC 2 /hpf (0 - 3) Urine Microscopic WBC 1 /HPF (0-3) Urine Squamous Epithelial Cells None seen /hpf (<5) Urine Bacteria None seen /hpf (None Seen) Urine Mucus Few (None Seen) Urine Glucose Normal mg/dL (Normal) Assessment/Plan Assessment/Plan Jimmy Oconnell is a 39-year-old male with no past medical history who presents to the ED with midsternal chest pain, left flank pain, and dysuria x1 day. Patient reports that the left flank pain is 2/10 intermittent and throbbing. He also reports that the midsternal chest pain is 1/10 throbbing and intermittent better when lying down. Patient also reports of upper quadrant pain, worse when coughing. He reports that he lost 50 lb over the last several months and has had a poor appetite. Patient states that there are no triggering factors. Patient denies any shortness of breath, fever, chills, recent sick contacts, hematuria, nausea, vomiting, and diarrhea. 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 Plan discussed with: Patient Date of Service: Oct 02, 2024 Billing Provider: MILES AGUSTIN DO Common Visit Codes: [id number] INP/OBS CARE(HIGH) MILES AGUSTIN DO Oct 02, 2024 14:41
--- NOTE | 2024-10-02 19:10 | DVHINCON2 ---
Date of service: Oct 02, [address] Combs Reason for Consultation Dyspnea History of Present Illness A 39-year-old man with no significant past medical history who presented to the ED on 10/01/24 with c/o midsternal chest pain, left flank pain, and dysuria x1 day. Patient reported left flank pain of 2/10 on pain scale, intermittent and throbbing; midsternal chest pain of 1/10, throbbing and intermittent, better when lying down; also left upper quadrant pain, worse when coughing. Patient has lost 50 lb over the last several months and has had a poor appetite. Patient was admitted for further care and pulmonary consultation is requested for evaluation and management due to dyspnea. Review of Systems: 14-point review of systems negative unless otherwise noted above. Past Medical History: None Past Surgical History: None Medications: Reviewed. Allergies: No known drug allergies. Family History: Diabetes mellitus Dad with hypertension. Mom with dementia. Social History: Smoking: <1 pack per day (Vapes) Alcohol: Heavy alcohol use Drugs: Admits to cocaine use. Family History: Diabetes mellitus Hypertension Allergies: Coded Allergies: NO KNOWN ALLERGIES (Unverified , 10/01/24) Current Medications Current Medications Medications (Trade) Dose Ordered Sig/Marina Route PRN Reason Start Time Stop Time Status Last Admin Aspirin 81 mg DAILY PO 10/02/24 10:00 10/02/24 18:48 DC 10/02/24 09:54 Atorvastatin Calcium (Lipitor) 40 mg HS PO 10/01/24 22:00 10/02/24 18:48 DC 10/01/24 22:27 Ceftriaxone Sodium 50 ml @ 100 mls/hr DAILY@09 IV 10/02/24 09:00 10/02/24 18:48 DC 10/02/24 09:53 Pantoprazole Sodium (Protonix) 40 mg DAILY IV 10/02/24 10:00 10/02/24 18:48 DC 10/02/24 09:52 Vital Signs Vital Signs Date Time Temp Pulse Resp B/P (MAP) Pulse Ox O2 Delivery O2 Flow Rate FiO2 10/02/24 17:00 97.5 70 20 112/69 (83) 97 97.5 10/02/24 11:22 Room Air 0.0 10/02/24 11:22 21 Physical Exam Gen.: Patient lying in bed in no apparent distress. Breathing on room air. Head: Normocephalic, atraumatic. Eyes: EOMI/PERRLA. Ears: Normal hearing. Normal anatomy. Neck/trachea: Trachea midline, supple. Nose: Normal external anatomy. Mouth: Moist mucous membranes. Chest: Decreased air entry bilaterally. No wheezing or rhonchi. Cardiovascular: Positive S1, positive S2. Regular rate and rhythm. Abdomen: Positive bowel sounds in all 4 quadrants. Soft, non-tender, non- distended. : Deferred. Rectal: Deferred. Skin: Warm, dry. Intact. Extremities: 2+ radial pulses bilaterally. No lower extremity edema. Neuro: Awake, alert, oriented x3. No gross motor or sensory deficits. Cranial nerves II through XII intact. Gait not assessed. Labs/Diagnostic Data Labs Test 10/02/24 07:17 10/01/24 12:50 10/01/24 10:51 10/01/24 06:41 Range/Units White Blood Count 7.0 4.4-10.8 10^3/uL Red Blood Count 5.22 4.5-5.90 10^6/uL Hemoglobin 15.9 13.5-17.5 g/dL Hematocrit 47.3 41.0-53.0 % Mean Corpuscular Volume 90.6 80.0-100.0 fL Mean Corpuscular Hemoglobin 30.6 28.0-32.0 pg Mean Corpuscular Hemoglobin Concent 33.7 32.0-36.0 g/dL Red Cell Distribution Width 16.3 H 11.8-14.3 % Platelet Count 195 140-450 10^3/uL Mean Platelet Volume 8.2 6.9-10.8 fL Neutrophils (%) (Auto) 50.6 37.0-80.0 % Lymphocytes (%) (Auto) 33.6 10.0-50.0 % Monocytes (%) (Auto) 5.6 0.0-12.0 % Eosinophils (%) (Auto) 9.6 H 0.0-7.0 % Basophils (%) (Auto) 0.6 0.0-2.0 % Neutrophils # (Auto) 3.6 1.6-8.6 10 ^3/uL Lymphocytes # (Auto) 2.4 0.4-5.4 10 ^3/uL Monocytes # (Auto) 0.4 0-1.3 10 ^3/uL Eosinophils # (Auto) 0.7 0-0.8 10 ^3/uL Basophils # (Auto) 0 0-0.2 10 ^3/uL Nucleated Red Blood Cells 0.1 % Sodium Level 140 136-145 mmol/L Potassium Level 4.2 3.5-5.1 mmol/L Chloride Level 104 98-107 mmol/L Carbon Dioxide Level 32 H 20-31 mmol/L Anion Gap 4 L 5-15 Blood Urea Nitrogen 12 9-23 mg/dL Creatinine 1.19 0.700-1.30 mg/dL Glomerular Filtration Rate Calc 79 >90 mL/min BUN/Creatinine Ratio 10.1 10.0-20.0 Serum Glucose 91 74-106 mg/dL Calcium Level 9.3 8.7-10.4 mg/dL Troponin I High Sensitivity 5 </=54 ng/L B-Type Natriuretic Peptide 5.13 0-100 pg/mL Lipase 34 12-53 U/L Test 10/01/24 05:50 Range/Units Urine Color Yellow Yellow Urine Clarity Clear Clear Urine pH 6.0 5.0-9.0 Urine Specific [place] 1.029 1.001-1.035 Urine Protein Trace H Negative Urine Ketones 1+ H Negative Urine Blood Negative Negative /uL Urine Nitrite Negative Negative Urine Bilirubin Negative Negative Urine Urobilinogen Normal Negative mg/dL Urine Leukocyte Esterase Negative Negative /uL Urine RBC 2 0 - 3 /hpf Urine Microscopic WBC 1 0-3 /HPF Urine Squamous Epithelial Cells None seen <5 /hpf Urine Bacteria None seen None Seen /hpf Urine Mucus Few None Seen Urine Glucose Normal Normal mg/dL Urine Opiates Screen Neg NEGATIVE Urine Fentanyl Screen Neg NEGATIVE Urine Barbiturates Screen Neg NEGATIVE Urine Phencyclidine Screen Neg NEGATIVE Urine Amphetamines Screen Neg NEGATIVE Urine Benzodiazepines Screen Neg NEGATIVE Urine Cocaine Screen Pos NEGATIVE Urine Cannabinoids Screen Neg NEGATIVE Assessment Impression: Dyspnea Nicotine dependence Cocaine use Renal cysts Nephrolithiasis CAD, non-obstructive Plan: CT abdomen and pelvis -no acute opacities CXR- no acute opacities. On room air Urine tox: Cocaine. Bronchodilators PRN SOB Smoker, recommend outpatient PFTs. Complete abx F/u cultures Cardiology recommendations appreciated. GI prophylaxis Prognosis: Poor given patient's multiple co-morbidities. Rest of plan per hospitalist and other consultants. Thank you, Dr. Combs, for allowing me to participate in this patient's care. Further recommendations will depend on the patient's clinical course. Please do not hesitate to contact me if you have any questions or concerns. This medical document was created using an electronic medical record system with in[employer]ar[employer] dictation system. Although these documentations are being carefully reviewed, there may still be some phonetic and typographical changes. The errors are purely typographical, due to imperfection on the software program, and do not reflect any compromise in the patient's medical care. Plan discussed with: Patient, Other (FILIBERTO Barrera MD) LOREN CHUNG MD Oct 02, 2024 19:10
== END 2024-10-02 18:35 | disposition left against medical advice (07) | DRG 694 ==
LOC: ER 05:15 → TELE 10:33 → TELE-WESTW 21:37
PROVIDERS: ADMIT Internal Medicine; ATTEND Internal Medicine
DX: N20.0 Calculus of kidney (principal); R07.2 Precordial pain; F14.90 Cocaine use, unspecified, uncomplicated; F17.210 Nicotine dependence, cigarettes, uncomplicated; I25.10 Atherosclerotic heart disease of native coronary artery without angina pectoris; Z53.29 Procedure and treatment not carried out because of patient's decision for other reasons; N28.1 Cyst of kidney, acquired; Z82.49 Family history of ischemic heart disease and other diseases of the circulatory system; Z83.3 Family history of diabetes mellitus
CPT/HCPCS: 36415; 71045; 74176; 80048; 80307; 81001; 83690; 83880; 84484; 85025; 93005; 94640; 96361; 96365; G0378; J2470